=== PATIENT | male | born 1945 | race Caucasian/White ===

== ENCOUNTER → 2023-12-13 14:41 | Outpatient (REF) | payer MEDICARE, SELFPAY | LOC: CLAB 14:41 | PROVIDERS: ATTENDING PHYSICIAN Surgery | DX: N39.0 Urinary tract infection, site not specified (principal) | CPT/HCPCS: 87086 ==

== ENCOUNTER → 2024-01-25 08:42 | Outpatient (REF) | payer MEDICARE, SELFPAY | LOC: MRI 3T 08:42 | PROVIDERS: ATTENDING PHYSICIAN Surgery; FAMILY PHYSICIAN Family Medicine | DX: R97.20 Elevated prostate specific antigen [PSA] (principal) | CPT/HCPCS: 72197; A9575 ==

== ENCOUNTER → 2024-04-19 09:06 | Day surgery (SDC) | payer MEDICARE, SELFPAY ==
[2024-04-19 11:06] LABS: Hematocrit 39.1 % (39.0-52.0); Hemoglobin 13.4 g/dL (13.0-18.0); Mean Corp Hgb Conc. 34.3 g/dL (33.0-37.0); Mean Corpuscular Hgb 31.2 pg (27.0-31.0); Mean Corpuscular Volume 91.1 fL (80.0-94.0); Mean Platelet Volume 10.7 fL (7.4-10.4); Platelet Count 201 10^3/uL (130-400); Red Blood Cell Count 4.29 10^6/uL (4.70-6.10)
[2024-04-19 11:06] LABS: Urine Albumin Negative (Neg - Trace); Urine Bilirubin Negative (Negative); Urine Character Clear (Clear); Urine Color Yellow; Urine Glucose Negative (Negative); Urine Ketone Negative (Negative); Urine Leukocyte Negative (Negative); Urine Nitrite Negative (Negative); Urine Occult Blood Negative (Negative); Urine Specific Gravity 1.025 (<1.030); Urine Urobilinogen Negative (Neg - 1+)
[2024-04-19 11:38] LABS: Blood Urea Nitrogen 23 mg/dl (9-20); Calcium 9.1 mg/dl (8.4-10.2); Carbon Dioxide 27 mmol/L (22-30); Chloride 103 mmol/L (98-107); Glucose 102 mg/dl (70-99); Potassium 4.3 mmol/L (3.5-5.1); Sodium 144 mmol/L (135-145); eGFR > 60.00
== END ==
LOC: SDSPAT 09:06
PROVIDERS: ATTENDING PHYSICIAN Surgery; FAMILY PHYSICIAN Family Medicine
DX: Z01.810 Encounter for preprocedural cardiovascular examination (principal); Z01.812 Encounter for preprocedural laboratory examination
CPT/HCPCS: 93005; 36415; 80048; 81003; 85027

== ENCOUNTER 2024-04-26 06:22 | Day surgery (SDC) | payer MEDICARE, SELFPAY ==
[2024-04-19 09:55] VITALS: BMI 28.2
[2024-04-26] VITALS (7 sets, daily range): BP systolic 130–144; BP diastolic 71–86; BMI 28.2
[2024-04-26] MEDS: CYSVIEW KIT 100 MG INTRAVES (08:43)
--- NOTE | 2024-04-26 10:07 | W.SUR.PREOP ---
Pre-Operative Surgical Note
-
I have examined this patient prior to the performance of the scheduled procedure.
The patient's condition is unchanged from the time of the current History and
Physical and the patient is able to undergo the scheduled procedure.
To OR for blue light TURBT + intravesical gemcitabine.
Informed consent signed on chart.
== END 2024-04-26 12:34 | disposition home or self-care (01) ==
LOC: SDS 06:22
PROVIDERS: ATTENDING PHYSICIAN Surgery; FAMILY PHYSICIAN Family Medicine
DX: C67.2 Malignant neoplasm of lateral wall of bladder (principal); N40.1 Benign prostatic hyperplasia with lower urinary tract symptoms
CPT/HCPCS: 52234; C9738; 88307; A9589